=== PATIENT | male | born 1945 | race Caucasian/White ===

== ENCOUNTER 2018-08-25 05:56 | Day surgery (SDC) | payer MEDICARE, BC ==
[~2018-08-25] VITALS: Ht 177.8 cm; Wt 92.3 kg
[2018-08-25 06:50] VITALS: Ht 177.8 cm; Wt 92.3 kg
[2018-08-25] MEDS ORDERED: LIDOCAINE 2% (SDV) 5 ML INJ ONE (07:00)
[2018-08-25] MEDS ORDERED: PROPOFOL 200 MG INJ ONE (07:00)
[2018-08-25] MEDS ORDERED: TAMSULOSIN HCL (07:10)
[2018-08-25] MEDS ORDERED: [UNRECOGNIZED DRUG - OTHER] (07:10)
[2018-08-25] MEDS ORDERED: PROPOFOL 60 ML ONE (07:35)
--- NOTE | 2018-08-25 07:38 | PREAC ---
Date/Time of Note Date/Time of Note DATE: 08/25/18 TIME: 07:37 Anesthesia Eval and Record Evaluation Time Pre-Procedure Interview DATE: 08/25/18 TIME: 07:37 Age 73 Sex male NPO: 8 hrs Preoperative diagnosis abd pain Planned procedure EGD Past Medical History Past Medical History: Includes Cardio: HTN, Dyslipidemia Renal: BPH Surgery & Anesthesia Issues No known issue Meds Anticoagulation: No Beta Marquis within 24 hr: No Reason Beta Marquis not given: Pt. not on B-Marquis Reported Medications [Tamsulosin Hcl] No Conflict Check 08/25/18 [Statin Therapy] No Conflict Check 08/25/18 Meds reviewed: Yes Allergies Coded Allergies: No Known Allergy (Unverified , 08/25/18) Allergies Reviewed: Yes Labs/Studies Labs Reviewed: Reviewed by anesthesiologist test: N/A Studies: ECG, CXR Pre-procedure Exam Airway: Adequate mouth opening, Adequate thyromental dist Mallampati: Mallampati III Teeth: Normal Lung: Normal Heart: Normal ASA Physical Status ASA physical status: 3 Emergency: None Planned Anesthetic General/MAC: MAC Planned Pain Management Parenteral pain med Pre-operative Attestations Prior to commencing anesthesia and surgery, the patient was re-evaluated, there was verification of: *The patient's identity *The results of appropriate recent lab work and preoperative vital signs *The above evaluation not changing prior to induction *Anesthetic plan, risk benefits, alternative and complications discussed with patient/family; questions answered; patient/family understands, accepts and wishes to proceed. YARY MOYA MD Aug 25, 2018 07:38
[2018-08-25 07:40] VITALS: BP 148/84; PULSE 68; RESP 18
[2018-08-25 08:23] VITALS: BP 108/62; RESP 14
--- NOTE | 2018-08-26 07:48 | PAC ---
Date/Time of Note Date/Time of Note DATE: 08/26/18 TIME: 07:48 Post-Anesthesia Notes Post-Anesthesia Note Last documented vital signs Vital Signs Date Temp Pulse Resp B/P (MAP) Pulse Ox O2 O2 Flow FiO2 Time Delivery Rate 08/25/18 14 108/62 97 08:23 (77) 08/25/18 97.8 68 Room Air 07:40 Activity: WNL Respiratory function: WNL Cardiovascular function: WNL Mental status: Baseline Pain reasonably controlled: Yes Hydration appropriate: Yes Nausea/Vomiting absent: Yes YARY MOYA MD Aug 26, 2018 07:48
== END 2018-08-25 10:43 | disposition home or self-care (01) ==
LOC: GIL 05:56
PROVIDERS: ATTEND Internal Medicine Gastroenterology
DX: K44.9 Diaphragmatic hernia without obstruction or gangrene (principal); K21.9 Gastro-esophageal reflux disease without esophagitis; I10 Essential (primary) hypertension; E78.5 Hyperlipidemia, unspecified
CPT/HCPCS: 88305; 88312